=== PATIENT | male | born 1975 | race Caucasian/White ===

== ENCOUNTER 2021-02-14 07:38 | Observation (INO) ==
[~2021-02-14 07:38] MED LIST: Buffered Lidocaine 1% SYRIN 1 ml INTRADERM ONE; Lactated Ringers 1000 ml BAG 1,000 ML IV SCH
[2021-02-14] MEDS ORDERED: ceFAZolin 2 GM in NS PREMIX 2 GM/100 ML BAG IVPB ONE (07:49)
[2021-02-14] MEDS ORDERED: Midazolam 2 mg/2 ml VIAL 1 mg/ml 2 ml VIAL (2 mg) ONE (08:11)
[2021-02-14] MEDS ORDERED: Ketamine HCL 50 mg/ml 10 ml VIAL (500 MG) ONE (08:14)
[2021-02-14] MEDS ORDERED: fentaNYL 100 mcg/2 ml 50 MCG/ML VIAL ONE (08:14)
[2021-02-14] MEDS ORDERED: Lidocaine 2% PF 5 ML VIAL ONE (08:17)
[2021-02-14] MEDS ORDERED: Phenylephrine IV 10 MG/ML 1 ml VIAL ONE (08:17)
[2021-02-14] MEDS ORDERED: Ondansetron 4 mg VIAL 2 MG/ML 2 ml VIAL ONE (08:19)
[2021-02-14] MEDS ORDERED: Dexamethasone IV 4 MG/ML VIAL 1 ml VIAL ONE (08:19)
[2021-02-14] MEDS ORDERED: Ropivacaine 5 MG/ML 20 ML VIAL 0.5% (100 MG) ONE (08:45)
[2021-02-14] MEDS ORDERED: Propofol 10 mg/ml 100 ML BTL 200 ML ONE (09:02)
[2021-02-14] MEDS ORDERED: diPHENhydraMINE IV 50 MG/ML 1 ml VIAL (BENADRYL) IV PRN ×2 (11:48→12:07)
[2021-02-14] MEDS ORDERED: Naloxone 0.4 mg VIAL 0.4 mg/ml 1 ml VIAL IV PRN (11:48)
[2021-02-14] MEDS ORDERED: fentaNYL 100 mcg/2 ml 50 MCG/ML VIAL IV PRN (11:48)
[2021-02-14] MEDS ORDERED: Morphine 2 MG/ML SYRINGE IV PRN (12:07)
[2021-02-14] MEDS ORDERED: Ondansetron 4 mg VIAL 2 MG/ML 2 ml VIAL IV PRN (12:07)
[2021-02-14] MEDS ORDERED: Ondansetron ODT 4 mg TAB 4 MG TAB PO PRN (12:07)
[2021-02-14] MEDS ORDERED: Lactulose 30 ml UDC PO PRN (12:07)
[2021-02-14] MEDS ORDERED: diPHENhydraMINE 25 mg TAB PO PRN (12:07)
[2021-02-14] MEDS ORDERED: Magnesium Hydroxide LIQ 30 ML UDC PO PRN (12:07)
[2021-02-14] MEDS: Lactated Ringers 1000 ml BAG 1,000 ML IV SCH (13:15)
[2021-02-14] MEDS ORDERED: Dextran 70/Hypromellose Tears Eye Drops 15 ml BTL (for Artificials Tears) BOTH EYES PRN (15:31)
[2021-02-14] MEDS: ceFAZolin 1 GM ADVAN 1 GM in NS 0.9% 50 ML 50 ML IVPB SCH (18:11)
[2021-02-14] MEDS: Magnesium Hydroxide LIQ 30 ML UDC PO SCH (21:35)
[2021-02-15] MEDS: ceFAZolin 1 GM ADVAN 1 GM in NS 0.9% 50 ML 50 ML IVPB SCH ×2 (01:41→10:21)
[2021-02-15] MEDS: Lactated Ringers 1000 ml BAG 1,000 ML IV SCH (01:41)
[2021-02-15 04:26] LABS: Hematocrit 35 % (42-52); Hemoglobin 12.3 g/dL (14.0-18.0); Mean Platelet Volume 8.1 fL (7.4-10.4); Platelet Count 188 10^3/uL (150-450)
[2021-02-15 04:42] LABS: Calcium 8.5 mg/dL (8.6-10.3); EGFR African American 139.7 (>60); EGFR Non-African American 115.4 (>60)
[2021-02-15] MEDS ORDERED: Vitamin THERAPEUTIC TAB PO SCH (09:00)
[2021-02-15] MEDS: Magnesium Hydroxide LIQ 30 ML UDC PO SCH (10:36)
[2021-02-15 11:23] VITALS: BP 125/74
== END 2021-02-15 12:20 | disposition home or self-care (01) ==
LOC: OR 07:38 → SSU 07:38
PROVIDERS: ADMIT Orthopaedic Surgery Adult Reconstructive Orthopaedic Surgery; ATTEND Orthopaedic Surgery Adult Reconstructive Orthopaedic Surgery